=== PATIENT | male | born 1985 | race African-American/Black ===

== ENCOUNTER 2017-09-19 14:46 | Emergency (ER) | payer OTHER ==
[~2017-09-19] VITALS: Ht 172.7 cm; Wt 72.8 kg
[2017-09-19 14:52] VITALS: BP 156/90
[2017-09-19] MEDS ORDERED: PROCHLORPERAZINE 5 MG/ML, 2ML IVPush ONE (15:30)
[2017-09-19] MEDS ORDERED: DIPHENHYDRAMINE 50 MG/ML, 1ML IVPush ONE (15:30)
[2017-09-19] MEDS ORDERED: SODIUM CHLORIDE 0.9% 1,000ML IVBOLUS ONE (15:30)
[2017-09-19] MEDS ORDERED: DIPHENHYDRAMINE 50 MG/ML, 1ML ONE (15:39)
[2017-09-19] MEDS ORDERED: PROCHLORPERAZINE 5 MG/ML, 2ML ONE (15:39)
== END 2017-09-19 16:30 | disposition home or self-care (01) ==
LOC: ED 16:00
DX: D17.0 Benign lipomatous neoplasm of skin and subcutaneous tissue of head, face and neck (principal)
CPT/HCPCS: 96361; 96374; 96375; 99284; J0780; J1200; J7030